=== PATIENT | female | born 1930 | race Caucasian/White ===

== ENCOUNTER → 2016-10-30 | Outpatient (CLI) | payer MEDICARE, BC, MEDICAID ==
[~2016-10-30] MED LIST: BENICAR 20MG TA20 MG PO; CEFTIN 250250 MG/TAB PO; COUMADIN 5MG5 MG/TAB PO; IRON TABLETS325 MG PO; LANTUS SOLOS100 U/ML SQ; LANTUS100 U/ML SQ; LASIX 20MG TABL20 MG PO; LASIX 40MG TABL40 MG PO; MILK OF MA400 MG/52 PO; NOVOLOG 100U100 U/M1 SQ; NYAMYC100000 U/G TP; PLAQUENIL 200M200 MG PO; PRILOSEC 20MG20 MG PO; SYNTHROID 0.0.025 MG PO; SYNTHROID0.05 MG/TA PO; TOPROL XL 25MG25 MG PO; ULTRAM 50MG TAB50 MG PO; ZETIA 10MG TAB10 MG PO; ZOFRAN 4MG T4 MG/TAB PO; ZOLOFT 50MG50 MG PO; ZYLOPRIM 300MG300 MG PO
== END ==
LOC: COL.RAD 10:17
DX: E85.9 Amyloidosis, unspecified (principal); R19.7 Diarrhea, unspecified; R10.9 Unspecified abdominal pain; R11.2 Nausea with vomiting, unspecified; R63.4 Abnormal weight loss; Z96.643 Presence of artificial hip joint, bilateral; Z90.49 Acquired absence of other specified parts of digestive tract
CPT/HCPCS: Q9967